=== PATIENT | female | born 1995 | race Caucasian/White ===

== ENCOUNTER 2018-12-19 19:20 | Emergency (ER) | payer MEDICAID ==
[~2018-12-19] VITALS: Ht 167.6 cm; Wt 59.0 kg
[2018-12-19 19:35] VITALS: BP_SYST 121
--- NOTE | 2018-12-19 19:40 | NUR ---
Patient triaged and placed in waiting room. VSS and patient appears in no acute distress at this time. Accompanied by self , awaiting available bed, and MD notified of need for MSE.
--- NOTE | 2018-12-20 00:35 | NUR ---
Per crib clerk, pt lwbs.
== END 2018-12-20 00:35 | disposition left against medical advice (07) ==
LOC: SED 19:20
DX: S00.472A Other superficial bite of left ear, initial encounter (principal); Z53.21 Procedure and treatment not carried out due to patient leaving prior to being seen by health care provider; W54.0XXA Bitten by dog, initial encounter; Y93.89 Activity, other specified; Y92.89 Other specified places as the place of occurrence of the external cause; Y99.8 Other external cause status